=== PATIENT | female | born 1955 | race Caucasian/White ===

== ENCOUNTER 2025-07-10 09:28 | Emergency (ER) | payer OTHER, MEDICARE ==
[~2025-07-10] VITALS: Ht 160 cm; Wt 77.0 kg
[2025-07-10] MEDS ORDERED: METFORMIN HCL500 MG PO (09:48)
[2025-07-10] MEDS ORDERED: LISINOPRIL10 MG PO (09:49)
[2025-07-10] MEDS ORDERED: HYDROCHLOROTHIA25 MG PO (09:49)
[2025-07-10] MEDS ORDERED: TRULICITY3 MG/0.5 M SUB-Q (09:49)
[2025-07-10] MEDS ORDERED: ABILIFY15 MG PO (09:50)
[2025-07-10] MEDS ORDERED: BUCAPSOL10 MG PO (09:50)
--- OUTSIDE RECORDS SUMMARY | 2025-07-10 11:47 | XMS ---
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 - 2 Visits in 30 Days CARE PROVIDERS There are no care providers on record at this time. Sherman has no Care Guidelines for this patient. Freddy VISIT COUNT (12 MO.) [address] [place] [id number] STEPHANIE Shine TOTAL 3 NOTE: Visits indicate total known visits. ED/[facility] VISIT TRACKING (12 MO.) 07/10/2025 09:29 [facility] TYPE: Emergency COMPLAINT: - HEAD INJURY 06/13/2025 10:54 [facility]E [facility] TYPE: Emergency DIAGNOSES: - Calculus of ureter - Nephrolithiasis - right side pain 06/12/2025 15:08 [facility] TYPE: Emergency DIAGNOSES: - Calculus of kidney - Flank Pain - right side pain INPATIENT VISIT TRACKING (12 MO.) 06/13/2025 10:54 [facility] DEBBIE [facility]endon TYPE: General Medicine DIAGNOSES: - Calculus of ureter - Essential (primary) hypertension [email or web address]
[2025-07-10 18:23] VITALS: BP 106/65
== END 2025-07-10 18:20 | disposition home or self-care (01) ==
LOC: ED 09:28
DX: S06.5X0A Traumatic subdural hemorrhage without loss of consciousness, initial encounter (principal); S01.112A Laceration without foreign body of left eyelid and periocular area, initial encounter; Y92.59 Other trade areas as the place of occurrence of the external cause; I10 Essential (primary) hypertension; E11.9 Type 2 diabetes mellitus without complications; Z87.442 Personal history of urinary calculi; Z88.2 Allergy status to sulfonamides; Z79.84 Long term (current) use of oral hypoglycemic drugs; Z79.899 Other long term (current) drug therapy; W01.10XA Fall on same level from slipping, tripping and stumbling with subsequent striking against unspecified object, initial encounter
CPT/HCPCS: 70450; 99283-25